=== PATIENT | female | born 1975 | race Caucasian/White ===

== ENCOUNTER 2024-06-28 22:12 | Emergency (ER) | payer OTHER ==
[~2024-06-28] VITALS: Ht 160 cm; Wt 65.6 kg
[~2024-06-28 22:12] MED LIST: METFORMIN HCL1000 M1 PO; ONDANSETRON ODT8 MG PO; TAMOXIFEN CITRA20 MG PO; VAZALORE81 MG PO; ZESTRIL5 MG PO
[2024-06-28] MEDS ORDERED: ASPIRIN 81 MG CHEW PO ONE (22:30)
[2024-06-28] MEDS ORDERED: GLIMEPIRIDE1 MG PO (22:32)
[2024-06-28] MEDS ORDERED: LEFLUNOMIDE20 MG PO (22:33)
[2024-06-28 22:56] LABS: RBC 3.92 M/ul (4.3-5.7)
[2024-06-28 22:59] LABS: BASOPHILS 0.4 % (0-2); EOSINOPHILS 1.2 % (0-6); HEMATOCRIT 36.4 % (35.0-50.0); HEMOGLOBIN 12.5 g/dL (12.0-18.0); LYMPHOCYTES 22.1 % (24-44); MCH 31.8 (27-36); MCHC 34.3 g/dl (30-36); MCV 92.7 fl (81-99); MONOCYTES 8.2 % (0-12); NEUTROPHILS 68.1 % (39-80); PLATELET COUNT 191 K/uL (140-440); RDW 12.3 (10.5-15.0)
[2024-06-28 23:19] LABS: ALBUMIN 3.4 g/dL (3.4-5.0); ALKALINE PHOSPHATASE 134 U/L (46-116); ALT (SGPT) 30 U/L (14-59); ANION GAP 14.5 (7-21); AST (SGOT) 20 U/L (15-37); BILIRUBIN, TOTAL 0.2 ng/dL (0.2-1.0); BUN/CREATININE RATIO 20.31 (6.0-28.6); CALCIUM 8.7 mg/dL (8.5-10.1); CARBON DIOXIDE 25 mmol/L (21-32); CHLORIDE 106 mmol/L (98-107); CREATININE, SERUM 0.64 mg/dL (0.55-1.02); GLOMERULAR FILTRATION RATE,EST 109 mL/min (>60); MAGNESIUM 1.6 mg/dL (1.8-2.4); POTASSIUM 3.5 mmol/L (3.5-5.1); PROTEIN, TOTAL 6.8 g/dL (6.4-8.2); UREA NITROGEN 13 mg/dL (7-18)
[2024-06-28 23:26] LABS: BILIRUBIN, URINE NEGATIVE (negative); BLOOD/HGB, URINE NEGATIVE (Negative); KETONE, URINE NEGATIVE (Negative); LEUK ESTERASE, URINE NEGATIVE (negative); NITRITE, URINE NEGATIVE (negative)
[2024-06-28 23:31] VITALS: BP 118/60
--- NOTE | 2024-06-29 22:49 | EKG ---
[facility] [address] [facility] [place] [id number] Signed Normal sinus rhythm Normal ECG When compared with ECG of 11-MAR-2023 18:14, No significant change was found Confirmed by Katerina Ortez MD () on 06/29/2024 10:49:31 PM Electronically Signed By: KATERINA ORTEZ MD 06/29/24 [id number] PATIENT NAME: LIBERTAD SCHMITT Electrocardiogram DATE OF : 77 PHYSICIAN: KATERINA ORTEZ MD REPORT #: [id number] REPORT IS CONFIDENTIAL AND NOT TO BE RELEASED WITHOUT AUTHORIZATION
== END 2024-06-28 23:35 | disposition home or self-care (01) ==
LOC: ED 22:12
PROVIDERS: Internal Medicine
DX: R07.1 Chest pain on breathing (principal); E11.9 Type 2 diabetes mellitus without complications; K21.9 Gastro-esophageal reflux disease without esophagitis; C50.919 Malignant neoplasm of unspecified site of unspecified female breast; Z79.84 Long term (current) use of oral hypoglycemic drugs; Z79.899 Other long term (current) drug therapy; Z88.0 Allergy status to penicillin; Z79.82 Long term (current) use of aspirin
CPT/HCPCS: 36415; 71045; 80053; 81003; 83735; 83880; 84484; 85025; 85379; 93005; 93010; 99285-25; A9270